=== PATIENT | female | born 1990 | race Caucasian/White ===

== ENCOUNTER 2022-12-31 08:49 | Day surgery (SDC) | payer OTHER ==
[2022-12-31] MEDS ORDERED: Depo-Medrol 40 MG/ML IM ONE (08:50)
[2022-12-31] MEDS ORDERED: LIDOCAINE HCL 2% 100 MG/5 ML IJ ONE (08:50)
[2022-12-31 10:07] LABS: HCG URINE TEST NEGATIVE (NEGATIVE)
[2022-12-31] MEDS ORDERED: DIPRIVAN 200 MG/20 ML IV ONE (10:27)
--- NOTE | 2022-12-31 11:23 | XRAY ---
Indication: Bilateral L4-S1 MBB. Intraoperative fluoroscopy provided 15 seconds. Single digital spot image submitted for interpretation demonstrates posterior needle tips projecting over the expected left and right L4-S1 nerve roots. Correlate with intraoperative findings/report.
--- NOTE | 2022-12-31 11:42 | XRAY ---
15 seconds of fluoroscopy was used in surgery for a bilateral L4-S1 MBB.
[2022-12-31] MEDS ORDERED: Lactated Ringers 1,000 ML IV ONE (12:44)
== END 2022-12-31 10:55 | disposition home or self-care (01) ==
LOC: SDC-PAIN 08:49
PROVIDERS: ATTEND Psychiatry & Neurology Pain Medicine
DX: M47.816 Spondylosis without myelopathy or radiculopathy, lumbar region (principal); Z79.899 Other long term (current) drug therapy
CPT/HCPCS: 36415; 64493; 64494; 72020; 77002; 81025; 82947; J1030; J2704

== ENCOUNTER 2023-02-11 10:08 | Day surgery (SDC) | payer OTHER ==
[2023-02-11] MEDS ORDERED: BUPIVACAINE 0.5% VIAL IJ ONE (10:09)
[2023-02-11 10:38] LABS: HCG URINE TEST NEGATIVE (NEGATIVE)
[2023-02-11] MEDS ORDERED: DIPRIVAN 200 MG/20 ML IV ONE ×2 (12:10→12:17)
--- NOTE | 2023-02-11 12:46 | XRAY ---
Indication: Bilateral L4-S1 MBB. Intraoperative fluoroscopy provided for 12 seconds. Single digital spot image submitted for interpretation demonstrates posterior needle tips projecting over the expected left and right L4-S1 nerve roots. Correlate with intraoperative findings/report.
--- NOTE | 2023-02-11 14:11 | XRAY ---
12 seconds of fluoroscopy was used in surgery for a bilateral L4-S1 MBB.
[2023-02-11] MEDS ORDERED: Lactated Ringers 1,000 ML IV ONE (15:19)
== END 2023-02-11 12:40 | disposition home or self-care (01) ==
LOC: SDC-PAIN 10:08
PROVIDERS: ATTEND Psychiatry & Neurology Pain Medicine
DX: M47.812 Spondylosis without myelopathy or radiculopathy, cervical region (principal); E11.9 Type 2 diabetes mellitus without complications; Z79.899 Other long term (current) drug therapy
CPT/HCPCS: 64493; 64494; 72020; 77002; 81025; 82947; J2704

== ENCOUNTER 2023-04-15 08:32 | Day surgery (SDC) | payer OTHER ==
[2023-04-15] MEDS ORDERED: LIDOCAINE HCL 1% 50 MG/5 ML VL PF IJ ONE (08:33)
[2023-04-15] MEDS ORDERED: Depo-Medrol 40 MG/ML IM ONE (08:33)
[2023-04-15] MEDS ORDERED: BUPIVACAINE 0.5% VIAL IJ ONE (08:33)
[2023-04-15 09:14] LABS: HCG URINE TEST NEGATIVE (NEGATIVE)
[2023-04-15] MEDS ORDERED: Versed 2 MG/2 ML Injection ONE (09:28)
[2023-04-15] MEDS ORDERED: APRESOLINE 20 MG/ML INJ ONE (09:28)
[2023-04-15] MEDS ORDERED: DIPRIVAN 200 MG/20 ML IV ONE (09:58)
--- NOTE | 2023-04-15 10:47 | XRAY ---
Indication: Left L4-S1 RFA. Intraoperative fluoroscopy provided for 26 seconds. 3 digital spot image submitted for interpretation demonstrates posterior needle tips projecting over the expected left L4-S1 nerve roots. Correlate with intraoperative findings/report.
[2023-04-15] MEDS ORDERED: Lactated Ringers 1,000 ML IV ONE (11:16)
--- NOTE | 2023-04-15 11:59 | XRAY ---
26 seconds of fluoroscopy was used in surgery for a left L4-S1 RFA.
== END 2023-04-15 10:40 | disposition home or self-care (01) ==
LOC: SDC-PAIN 08:32
PROVIDERS: ATTEND Psychiatry & Neurology Pain Medicine
DX: M47.816 Spondylosis without myelopathy or radiculopathy, lumbar region (principal); Z79.899 Other long term (current) drug therapy
CPT/HCPCS: 64635; 64636; 72100; 77002; 81025; 82947; J0360; J1030; J2001; J2250; J2704

== ENCOUNTER 2023-04-22 08:19 | Day surgery (SDC) | payer OTHER ==
[2023-04-22] MEDS ORDERED: LIDOCAINE HCL 1% 50 MG/5 ML VL PF IJ ONE (08:20)
[2023-04-22] MEDS ORDERED: BUPIVACAINE 0.5% VIAL IJ ONE (08:20)
[2023-04-22] MEDS ORDERED: DIPRIVAN 200 MG/20 ML IV ONE ×2 (10:42→10:57)
[2023-04-22 10:59] LABS: HCG URINE TEST NEGATIVE (NEGATIVE)
--- NOTE | 2023-04-22 13:08 | XRAY ---
Indication: Right L4-S1 RFA. Intraoperative fluoroscopy provided for 29 seconds. 3 digital spot image submitted for interpretation demonstrates posterior needle tips projecting over the expected right L4-S1 nerve roots. Correlate with intraoperative findings/report.
[2023-04-22] MEDS ORDERED: Lactated Ringers 1,000 ML IV ONE (13:09)
--- NOTE | 2023-04-22 13:30 | XRAY ---
29 seconds of fluoroscopy was used in surgery for a right L4-S1 RFA.
== END 2023-04-22 11:20 | disposition home or self-care (01) ==
LOC: SDC-PAIN 08:19
PROVIDERS: ATTEND Psychiatry & Neurology Pain Medicine
DX: M47.816 Spondylosis without myelopathy or radiculopathy, lumbar region (principal); E11.9 Type 2 diabetes mellitus without complications; Z79.899 Other long term (current) drug therapy
CPT/HCPCS: 64635; 64636; 72100; 77002; 81025; 82947; J2001; J2704